=== PATIENT | female | born 1965 | race Caucasian/White ===

== ENCOUNTER 2018-12-22 12:39 | Emergency (ER) | payer BC ==
[2018-12-22 15:04] VITALS: BP 142/78
--- NOTE | 2018-12-22 15:17 | UC ---
Skin Complaint HPI - HPI Summary HPI Summary: States she had an unengorged tick on right side of abdomen less than 24 hours. She was able to remove part of it but the head is still embedded. - History of Current Complaint Chief Complaint: [facility] Time Seen by Provider: 12/22/18 15:01 Stated Complaint: TICK BITE Hx Obtained From: Patient ?: No Onset/Duration: Resolved - Partially removed tick Skin Exposure Onset/Duration: Hours Ago Timing: Constant Onset Severity: Mild Current Severity: None Pain Intensity: 0 Aggravating Factor(s): Nothing Alleviating Factor(s): Nothing Associated Signs & Symptoms: Positive: Negative - Allergy/Home Medications Allergies/Adverse Reactions: Allergies Allergy/AdvReac Type Severity Reaction Status Date / Time azithromycin Allergy Severe Vomiting Verified 12/22/18 15:01 Penicillins Allergy Severe Vomiting Verified 12/22/18 15:01 Home Medications: Home Medications NK [No Home Medications Reported] 12/22/18 [History Confirmed 12/22/18] PMH/Surg Hx/FS Hx/Imm Hx Previously Healthy: Yes - Surgical History Surgical History: None - Family History Known Family History: Positive: None - Social History Alcohol Use: Rare Substance Use Type: None Smoking Status (MU): Never Smoked Tobacco Review of Systems All Other Systems Reviewed And Are Negative: Yes Skin: Positive: Other - Partial tick still embedded in right abdomen Is Patient Immunocompromised?: No Physical Exam Triage Information Reviewed: Yes Appearance: Well-Appearing, No Pain Distress, Well-Nourished Vital Signs: Initial Vital Signs Temp 97.4 F 12/22/18 15:01 Pulse 91 12/22/18 15:01 Resp 16 12/22/18 15:01 BP 142/78 12/22/18 15:01 Pulse Ox 100 12/22/18 15:01 Vital Signs Reviewed: Yes Skin: Positive: Other - Head of tick still embedded in right abdomen. Course/Dx - Course Course Of Treatment: Remaining part of tick was removed using the "tick twister". Pt tolerated procedure well. Tick has been on less than 24 hours and was not engorged, therefore pt opted not to have prophylactic medications against Lyme Disease. - Diagnoses Provider Diagnosis: Tick bite of abdominal wall Discharge - Sign-Out/Discharge Documenting (check all that apply): Patient Departure All imaging exams completed and their final reports reviewed: Yes - Discharge Plan Condition: Good Disposition: HOME Patient Education Materials: Tick Bite (ED) Referrals: [facility] [Outside] No Primary Care Phys,NOPCP [Primary Care Provider] - Additional Instructions: Follow up with your primary care provider if you develop fever, chills, body aches, rash in the next 4-6 weeks. - Billing Disposition and Condition Condition: GOOD Disposition: Home
== END 2018-12-22 15:21 | disposition home or self-care (01) ==
LOC: UCCORT 12:39
DX: S30.861A Insect bite (nonvenomous) of abdominal wall, initial encounter (principal); W57.XXXA Bitten or stung by nonvenomous insect and other nonvenomous arthropods, initial encounter; Z88.3 Allergy status to other anti-infective agents; Z88.0 Allergy status to penicillin
CPT/HCPCS: 99201; G0463